=== PATIENT | male | born 1950 | race Caucasian/White ===

== ENCOUNTER 2018-06-30 05:27 | Day surgery (SDC) | payer MEDICARE, BC ==
[~2018-06-30] VITALS: Ht 177.8 cm; Wt 81.5 kg
[2018-06-30 06:55] VITALS: BP 108/72
[2018-06-30] MEDS ORDERED: PROTAMINE SULFATE 10 MG/ML, 5ML ONE (06:57)
[2018-06-30] MEDS ORDERED: THROMBIN 5,000 UNIT VIAL TP ONE (06:57)
[2018-06-30] MEDS ORDERED: BUPIVACAINE/PF 0.5% ONE (06:57)
[2018-06-30] MEDS ORDERED: HEPARIN 1,000 UNITS/ML, 10ML ONE (06:58)
[2018-06-30] MEDS ORDERED: SODIUM CHLORIDE 0.9% 1,000 ML IV SCH (06:58)
[2018-06-30] MEDS ORDERED: INSU100I28 SQ (07:04)
[2018-06-30] MEDS ORDERED: SIMV20TA3 PO (07:04)
[2018-06-30] MEDS ORDERED: MIDO10TA PO (07:04)
[2018-06-30] MEDS ORDERED: DIPH25CA61 PO (07:04)
[2018-06-30] MEDS ORDERED: SUCR500T PO (07:04)
[2018-06-30] MEDS ORDERED: LEVO88TA2 PO (07:04)
[2018-06-30] MEDS ORDERED: SEMA0.25 SQ (07:04)
[2018-06-30] MEDS ORDERED: INSU100I37 SC (07:04)
[2018-06-30] MEDS ORDERED: CHOL200074 PO (07:04)
[2018-06-30] MEDS ORDERED: FLUD0.1T PO (07:04)
[2018-06-30] MEDS ORDERED: LACT1CAP24 PO (07:04)
[2018-06-30] MEDS ORDERED: LINA5TAB PO (07:04)
[2018-06-30] MEDS ORDERED: NIAC500T85 PO (07:04)
[2018-06-30] MEDS ORDERED: MIDAZOLAM 1 MG/ML, 2ML ONE (08:14)
[2018-06-30] MEDS ORDERED: FENTANYL PF 250 MCG/5ML ONE (08:14)
[2018-06-30] MEDS ORDERED: PROPOFOL 10 MG/ML, 20ML ONE (08:41)
[2018-06-30] MEDS ORDERED: DEXAMETHASONE 4 MG/ML, 1ML ONE (08:41)
[2018-06-30] MEDS ORDERED: ONDANSETRON 2MG/ML, 2ML ONE (08:41)
[2018-06-30] MEDS ORDERED: CEFAZOLIN 1,000 MG ONE (08:41)
[2018-06-30] MEDS ORDERED: HEPARIN 5,000 UNITS/ML*10ML IVF ONE (09:15)
[2018-06-30] MEDS ORDERED: MEPERIDINE/PF 25MG/0.5ML IVPush PRN (10:00)
[2018-06-30] MEDS ORDERED: PROMETHAZINE 25 MG/ML, 1ML IV PRN (10:00)
[2018-06-30] MEDS ORDERED: hydrALAzine 20 MG/ML, 1ML IV PRN (10:00)
[2018-06-30] MEDS ORDERED: HYDROmorphone 1 MG/ML, 1ML IV PRN (10:00)
[2018-06-30] MEDS ORDERED: ACETAMINOPHEN 325 MG TABLET PO PRN (10:00)
[2018-06-30] MEDS ORDERED: LABETALOL 5MG/ML, 20ML IV PRN (10:00)
[2018-06-30] MEDS ORDERED: HALOPERIDOL 5 MG/ML IV PRN (10:00)
[2018-06-30] MEDS ORDERED: OXYcodone 5 MG/5 ML ORAL.SOL UDC PO PRN (10:00)
[2018-06-30] MEDS ORDERED: FENTANYL PF 100 MCG/2ML IV PRN (10:00)
[2018-06-30] MEDS ORDERED: PLEASE ENTER ALLERGIES MC SCH (10:30)
== END 2018-06-30 11:10 | disposition home or self-care (01) ==
LOC: OUT 05:27
PROVIDERS: ATTEND Surgery
DX: E11.22 Type 2 diabetes mellitus with diabetic chronic kidney disease (principal); N18.6 End stage renal disease; Z98.890 Other specified postprocedural states; Z87.891 Personal history of nicotine dependence; Z88.8 Allergy status to other drugs, medicaments and biological substances; Z99.2 Dependence on renal dialysis
CPT/HCPCS: 36415; 36821; 80047; 93005; J0690; J1100; J1644; J2250; J2405; J2704; J3010; J7030; J2720; J3490